=== PATIENT | male | born 1995 | race African-American/Black ===

== ENCOUNTER 2019-12-25 13:52 | Emergency (ER) | payer SELFPAY ==
[~2019-12-25] VITALS: Ht 185.4 cm; Wt 61.2 kg
--- NOTE | 2019-12-25 14:10 | Emergency Room Report ---
History of Present Illness General Chief Complaint: Laceration Source: Patient Present Illness HPI Disclaimer: Please note that this report is being documented using [employer] technology. This can lead to erroneous entry secondary to incorrect interpretation by the dictating instrument. HPI: 24-year-old male presents for evaluation of laceration to the right forearm. He states he became frustrated and punched a piece of glass nothing he would break with excellently shattered. He sustained superficial laceration to the ulnar aspect of the arm. Denies any foreign body sensation. No injury to the wrist or hand or elbow or shoulder. Cannot recall last Tdap. Pain is minimal at this time. Has full strength and sensation in the right upper extremity. Bleeding controlled with pressure prior to arrival. Denies SI/HI. Allergies: Coded Allergies: No Known Allergies (Unverified , 12/25/19) Review of Systems All Other Systems: negative except mentioned in HPI Physical Exam General: Awake and alert, no acute distress HEENT: NC/AT. EOMI. Resp: Normal work of breathing Skin: 7 cm linear laceration over the ulnar aspect of the midforearm on the right side. Hemostatic. Superficial. No obvious foreign body. No contaminants appreciated. Another small 4 cm linear superficial laceration over the dorsal aspect. Hemostatic, no contaminants. MSK: Normal tone and bulk. Moving all extremities. No obvious deformity. Full range of motion in the right wrist and hand. 2+ radial pulse. Brisk capillary refill Neuro: Awake and alert. Mentating appropriately Procedures Laceration/Wound Repair Laceration/Wound Repair #1: Consent: Verbal Wound Location: upper extremity Wound's Depth, Shape: superficial, linear Wound Explored: clean Betadine Prep?: Yes Anesthesia: 1% Lidocaine Volume Anesthetic (ccs): 5 Wound Debrided: None Wound Repaired With: sutures Suture Size/Type: 4:0, proline Number of Sutures: 12 Layer Closure?: No Sterile Dressing Applied?: Yes Patient Tolerated: Well Complications: None Laceration/Wound Repair #2: Consent: Verbal Wound Location: upper extremity Wound's Depth, Shape: superficial, linear Wound Explored: clean Anesthesia: Lidocaine w/ Epi Volume Anesthetic (ccs): 2 Wound Debrided: None Wound Repaired With: sutures Suture Size/Type: 4:0, proline Number of Sutures: 4 Sterile Dressing Applied?: Yes Patient Tolerated: Well Complications: None Medical Decision Making Diagnostic Impression: Primary Impression: Laceration ER Course year-old male presents for evaluation of laceration to the right forearm sustained while punching a piece of glass. X-rays were obtained to evaluate for foreign body and none were seen. Patient's wound was irrigated and repaired with simple interrupted sutures. Good approximation. See procedure note for full details. Tetanus is updated. Patient discharged with PMD follow- up for suture removal. Discussed reasons to return to the emergency department. He understands and agrees with this treatment plan. Disposition: HOME, SELF-CARE Condition: Improved Scripts Triamcinolone Acetonide (Triamcinolone Acetonide 0.1% Oint*) 15 Gm Oint...g. 15 G TP NEEDED, #15 GM Prov: Gomez Elder MD 12/25/19 Gomez Elder MD Dec 25, 2019 14:10
[2019-12-25] MEDS ORDERED: Lidocaine 1% 10mg/ml/EPI 0.01mg/ml 30ml INJ ONE (14:15)
[2019-12-25] MEDS ORDERED: Tetanus/Diptheria/Pertussis IM ONE (14:15)
--- NOTE | 2019-12-25 14:16 | NUR ---
ED Nurse Note: Pt ambulated to ED d/t laceration on back of RT forearm, controlled bleeding. Per triage, pt stated, "I got frustrated amd hit my window and went throught glass". Placed on bed.
--- NOTE | 2019-12-25 14:22 | NUR ---
ED Nurse Note: Affected site cleansed with NS.
[2019-12-25 14:28] VITALS: BP 101/68
--- NOTE | 2019-12-25 14:35 | NUR ---
ED Nurse Note: Dr. Elder at bedside.
--- NOTE | 2019-12-25 14:43 | NUR ---
ED Nurse Note: X-ray done.
--- NOTE | 2019-12-25 14:52 | Diagnostic Imaging Report ---
Indication: Forearm pain Findings: 2 views of the right forearm were obtained. No acute fractures, malalignment, erosions or periostitis are identified. . No radiopaque foreign body seen. Laceration injury noted on the dorsal part of the forearm. IMPRESSION: Laceration injury
--- NOTE | 2019-12-25 15:21 | NUR ---
Note chadd in EDM - 12/25/19 at 1557 by LISSETTE ER DISCHARGE NOTE: Patient is cleared to be discharged per ERMD, pt is aox4, on room air, with stable vital signs. pt was given dc and prescription instructions, pt was able to verbalize understanding, pt id band removed. pt is able to ambulate with steady gait. pt took all belongings.
[2019-12-25] MEDS ORDERED: TRIAMCINOLONE A15 G2 TP (15:37)
[2019-12-25 15:45] VITALS: BP 101/68
--- NOTE | 2019-12-25 15:45 | NUR ---
ER DISCHARGE NOTE: Patient is cleared to be discharged per ERMD, pt is aox4, on room air, with stable vital signs. pt was given dc and prescription instructions, pt was able to verbalize understanding, pt id band removed. pt is able to ambulate with steady gait. pt took all belongings.
== END 2019-12-25 15:45 | disposition home or self-care (01) ==
LOC: EMR 14:32
DX: S51.811A Laceration without foreign body of right forearm, initial encounter (principal); Z23 Encounter for immunization; W25.XXXA Contact with sharp glass, initial encounter; Y92.9 Unspecified place or not applicable
CPT/HCPCS: 90471; 90715; 99283